=== PATIENT | female | born 1950 | race African-American/Black ===

== ENCOUNTER 2016-06-20 23:26 | Emergency (ER) | payer OTHER, MEDICARE ==
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
[2016-06-21 02:35] VITALS: BP 138/87
== END 2016-06-21 02:31 | disposition home or self-care (01) ==
LOC: ER 23:26
DX: M54.2 Cervicalgia (principal); M54.9 Dorsalgia, unspecified; V49.50XA Passenger injured in collision with unspecified motor vehicles in traffic accident, initial encounter
CPT/HCPCS: 99283